=== PATIENT | male | born 1950 | race Caucasian/White ===

== ENCOUNTER 2020-08-24 14:38 | Emergency (ER) | payer BC, MEDICARE ==
[~2020-08-24] VITALS: Ht 188 cm; Wt 131.8 kg
[~2020-08-24 14:38] MED LIST: AMLO5TAB15 PO; ASPI-1009 PO; BENA20TA82 PO; HCTZ25T PO; SIMV-42 PO
[2020-08-24] MEDS ORDERED: fentaNYL/PF 50MCG/1 ML 2ML syringe IV ONE ×2 (14:50→16:10)
[2020-08-24] MEDS ORDERED: HYDR-3965 PO (15:50)
[2020-08-24] MEDS ORDERED: HYDROcodone/acetaminophen 5mg/325mg tablet PO ONE (19:00)
[2020-08-24 19:15] VITALS: BP 133/67
== END 2020-08-24 19:18 | disposition home or self-care (01) ==
LOC: ER 14:38
DX: S42.295A Other nondisplaced fracture of upper end of left humerus, initial encounter for closed fracture (principal); I10 Essential (primary) hypertension; E78.00 Pure hypercholesterolemia, unspecified; R42 Dizziness and giddiness; Z79.899 Other long term (current) drug therapy; W18.39XA Other fall on same level, initial encounter; Y93.89 Activity, other specified; Y92.89 Other specified places as the place of occurrence of the external cause; Y99.8 Other external cause status
CPT/HCPCS: 29105; 73030; 96374; 96376; 99284; J3010

== ENCOUNTER 2020-09-26 12:12 | Inpatient (IN) | payer OTHER ==
[~2020-09-26] VITALS: Ht 188 cm; Wt 126.9 kg
[2020-09-26] VITALS (17 sets, daily range): BP systolic 123–187; BP diastolic 76–103
[~2020-09-26 12:12] MED LIST changes: +famotidine 20mg tablet PO ONE; +ringers solution, lacted 1,000 ML IV SCH; +vancomycin 1,500 MG in NS 300ml IV soln IV ONE
[2020-09-26] MEDS ORDERED: TRIA1CAP6 PO (13:14)
[2020-09-26] MEDS ORDERED: GABA-530 PO (13:14)
[2020-09-26] MEDS ORDERED: DOXY50CA2 PO (13:14)
[2020-09-26] MEDS ORDERED: PRAV20TA4 PO (13:14)
[2020-09-26] MEDS ORDERED: cefazolin/dext.iso 2gm/100ml 100 ML IV ONE (13:30)
[2020-09-26] MEDS ORDERED: tranexamic acid 650mg tablet PO ONE (13:30)
[2020-09-26] MEDS ORDERED: famotidine 20mg tablet PO ONE (13:30)
[2020-09-26] MEDS ORDERED: ceFAZolin 1GM/D5W- ADD-VANTAGE 50 ML IV ONE (13:30)
[2020-09-26 13:42] LABS: ALBUMIN 3.9 G/DL (3.4-5.0); ALBUMIN/GLOBULIN RATIO 1.1 (1.1-1.5); ALKALINE PHOSPHATASE 134 IU/L (46-116); BLOOD UREA NITROGEN 34 MG/DL (7-18); BUN/CREATININE RATIO 27.2 (5.4-32.0); CALCIUM 9.6 MG/DL (8.5-10.1); CHLORIDE 106 MMOL/L (99-107); CREATININE 1.25 MG/DL (0.60-1.10); PRE OP ALT 34 U/L (30-65); PRE OP ANION GAP 11 (8-16); PRE OP AST 20 U/L (10-37); PRE OP BILIRUB, TOTAL 0.6 MG/DL (0.0-1.0); PRE OP GLUCOSE 101 MG/DL (70-104); PRE OP POTASSIUM 3.8 MMOL/L (3.4-5.1); PRE OP SODIUM 143 MMOL/L (135-145); TOTAL CARBON DIOXIDE 26.4 MMOL/L (24-32); TOTAL PROTEIN 7.4 G/DL (6.4-8.2); eGFR 57 ML/MIN
[2020-09-26 13:43] LABS: BASOPHILS # (AUTO) 0.1 X10'3 (0-0.2); BASOPHILS % (AUTO) 0.8 % (0-1); EOSINOPHILS # (AUTO) 0.3 X10'3 (0-0.9); EOSINOPHILS % (AUTO) 4.6 % (0-6); LYMPHOCYTES # (AUTO) 1.5 X10'3 (1.1-4.8); MEAN CORPUSCULAR HEMOGLOBIN 31.2 PG (27.0-31.0); MEAN CORPUSCULAR HGB CONC 33.9 g/dL (33.0-36.5); MEAN CORPUSCULAR VOLUME 92.1 FL (78-98); MEAN PLATELET VOLUME 7.1 FL (7.4-10.4); MONOCYTES # (AUTO) 0.7 X10'3 (0-0.9); MONOCYTES % (AUTO) 10.1 % (2-12); NEUTROPHILS # (AUTO) 4.6 X10'3 (1.8-7.7); NEUTROPHILS % (AUTO) 63.5 % (42-75); PRE OP HEMOGLOBIN 15.2 g/dL (14.0-17.9); PRE OP PLATELET COUNT 241 X10'3 (140-440); RED BLOOD COUNT 4.88 X10'6 (4.70-6.10); RED CELL DISTRIBUTION WIDTH 13.6 % (11.5-14.5)
[2020-09-26] MEDS ORDERED: ketorolac trometh. 30mg/ml inj. ONE (16:10)
[2020-09-26] MEDS ORDERED: ROPIVAcaine 0.5% (5mg/ml) 30ml vial ONE ×2 (16:10→16:41)
[2020-09-26] MEDS ORDERED: sevoflurane 250ml liquid IH ONE (16:33)
[2020-09-26] MEDS ORDERED: MIDAZolam 1 MG/ML 5ML VIAL ONE (16:38)
[2020-09-26] MEDS ORDERED: fentaNYL/PF 50MCG/1 ML 2ML syringe ONE (16:38)
[2020-09-26] MEDS ORDERED: morphine 2 MG/ML inj. syringe IV PRN (18:05)
[2020-09-26] MEDS ORDERED: ROPIVAcaine 0.2% (10 MG/5 ML) BOLUS INJECTION INTERSCALE PRN (18:05)
[2020-09-26] MEDS ORDERED: ringers solution, lacted 1,000 ML IV SCH (18:05)
[2020-09-26] MEDS ORDERED: ondansetron/PF 4mg/2ml inj IV PRN ×2 (18:05→18:40)
[2020-09-26] MEDS ORDERED: ROPIVAcaine 0.2%/PF PUMP/bolus 545 ML INTERSCALE SCH (18:05)
[2020-09-26] MEDS ORDERED: morphine 4 MG/ML inj SYRINge IV PRN (18:05)
[2020-09-26] MEDS ORDERED: meperidine/PF 25mg/ml syringe IV PRN ×2 (18:05)
[2020-09-26] MEDS ORDERED: proCHLORperazine 10 MG/2 ml inj IV PRN (18:05)
[2020-09-26] MEDS ORDERED: HYDROmorphone inj. 0.5 MG/0.5 ML DISP.SYRIN IV PRN (18:40)
[2020-09-26] MEDS ORDERED: HYDROmorphone 1 mg/ml syringe IV PRN (18:40)
[2020-09-26] MEDS ORDERED: bisacodyl 10mg suppository rectal RC PRN (18:40)
[2020-09-26] MEDS ORDERED: magnesium hydroxide 30ml (MOM) UD suspension PO PRN (18:40)
[2020-09-26] MEDS ORDERED: acetaminophen 325mg tablet PO PRN (18:40)
[2020-09-26] MEDS ORDERED: oxyCODONE IR 5mg (immed. release) tablet PO PRN (18:40)
[2020-09-26] MEDS ORDERED: diphenhydrAMINE 25mg capsule PO PRN ×2 (18:40)
[2020-09-26] MEDS ORDERED: propofol inj 20 ML IV ONE (18:42)
[2020-09-26] MEDS ORDERED: ePHEDrine 50MG/ML INJ. ONE (18:43)
--- NOTE | 2020-09-26 18:54 | NUR ---
Received from OR via BED, accompanied by Anesthesiologist DR GONZALEZ and report given by Anesthesiologist. PT DROWSY, PAINFUL, LEFT SHOULDER W/DRSG, SHOULDER WRAP, ICE PACK, SLING CDI. Addendum: 09/26/20 at 1909 by America Santana RN Amended: Links added.
[2020-09-26] MEDS: meperidine/PF 25mg/ml syringe IV PRN ×2 (19:02→19:15)
[2020-09-26] MEDS ORDERED: acetaminophen 1,000mg/100ml IV 100 ML IV ONE (19:20)
[2020-09-26] MEDS ORDERED: LIDOcaine 2% 10ml TOPICAL JELLY (Urojet) MM ONE (19:40)
[2020-09-26] MEDS: acetaminophen 325mg tablet PO SCH (19:52)
--- NOTE | 2020-09-26 19:57 | NUR ---
PT W/O VOID SINCE THIS AM, BLADDER SCANNED FOR 608 ML URINE, CALL INTO DR ODEN AND UPDATED, ORDERS. 16 PASHTO SHETTY CATHETER PLACED BY INES Yates RN W/STERILE TECHNIQUE, CLEAR YELLOW URINE RETURN. PT TOLERATED PROCEDURE WELL. Addendum: 09/26/20 at 1958 by America Santana RN Amended: Links added.
[2020-09-26] MEDS ORDERED: vancomycin/NS 1 GM ADD-VANTAGE 250 ML IV SCH (20:00)
[2020-09-26] MEDS: gabapentin 100mg capsule PO SCH (20:23)
--- NOTE | 2020-09-26 20:24 | NUR ---
Report called to receiving nurse. PAIN IMPROVED AND TOLERABLE. Transferred via BED, NO Belongings,(SENT HOME W/), FIELD COORDINATOR AT BEDSIDE TO RECEIVE PT. Special Issues communicated to receiving nurse. YES. Addendum: 09/26/20 at 2030 by America Santana RN Amended: Links added.
[2020-09-26] MEDS ORDERED: triamterene/HCTZ 37.5/25mg tablet PO ONE (20:45)
[2020-09-26] MEDS ORDERED: lisinopril 20mg tablet PO ONE (20:45)
[2020-09-26] MEDS ORDERED: sennosides 8.6mg tablet PO SCH (21:00)
[2020-09-26] MEDS: oxyCODONE IR 5mg (immed. release) tablet PO PRN (21:03)
[2020-09-26] MEDS: potassium cl 20mEq in 1/2 NS 1,000 ML IV SCH (22:05)
[2020-09-27] VITALS: BP 128/79
[2020-09-27] MEDS: ceFAZolin/D5W- 1GM premix 50 ML IV SCH ×2 (00:29→08:03)
[2020-09-27] MEDS: oxyCODONE IR 5mg (immed. release) tablet PO PRN ×2 (01:11→09:42)
[2020-09-27] MEDS: acetaminophen 325mg tablet PO SCH ×2 (01:11→08:02)
[2020-09-27 02:00] VITALS: BP 128/76
[2020-09-27] MEDS: potassium cl 20mEq in 1/2 NS 1,000 ML IV SCH ×2 (02:40→11:33)
[2020-09-27 06:00] VITALS: BP 134/87
[2020-09-27 06:12] LABS: BASOPHILS % (AUTO) 0.2 % (0-1); EOSINOPHILS % (AUTO) 0 % (0-6); HEMATOCRIT 44.3 % (42.0-52.0); LYMPHOCYTES # (AUTO) 0.6 X10'3 (1.1-4.8); LYMPHOCYTES % (AUTO) 5.3 % (21-51); MEAN CORPUSCULAR HEMOGLOBIN 31.5 PG (27.0-31.0); MEAN CORPUSCULAR HGB CONC 33.8 g/dL (33.0-36.5); MEAN CORPUSCULAR VOLUME 93.2 FL (78-98); MEAN PLATELET VOLUME 7.3 FL (7.4-10.4); MONOCYTES # (AUTO) 0.3 X10'3 (0-0.9); MONOCYTES % (AUTO) 3.2 % (2-12); NEUTROPHILS # (AUTO) 9.5 X10'3 (1.8-7.7); NEUTROPHILS % (AUTO) 91.3 % (42-75); PLATELET COUNT 215 X10'3 (140-440); RED BLOOD COUNT 4.75 X10'6 (4.70-6.10); RED CELL DISTRIBUTION WIDTH 13.7 % (11.5-14.5); WHITE BLOOD COUNT 10.4 X10'3 (4.5-11.0)
[2020-09-27 06:21] LABS: ANION GAP 10 (8-16); CHLORIDE 101 MMOL/L (99-107); POTASSIUM 4.2 MMOL/L (3.5-5.1); SODIUM 136 MMOL/L (135-145); TOTAL CARBON DIOXIDE 25.2 MMOL/L (24-32)
--- NOTE | 2020-09-27 06:51 | NUR ---
Patient in room [facility] 4022A. I have received report from CLARIBEL Estevez and had the opportunity to ask questions and assume patient care.
[2020-09-27] MEDS: gabapentin 100mg capsule PO SCH ×2 (07:59→13:00)
[2020-09-27] MEDS ORDERED: atorvastatin 10mg tablet PO SCH (08:00)
[2020-09-27] MEDS ORDERED: lisinopril 20mg tablet PO SCH (08:00)
[2020-09-27] MEDS ORDERED: amLODIPine 5mg tablet PO SCH (08:00)
[2020-09-27] MEDS ORDERED: DOXYCYCLINE 100MG CAPSULE PO SCH (08:00)
[2020-09-27] MEDS ORDERED: triamterene/HCTZ 37.5/25mg tablet PO SCH (08:00)
[2020-09-27] MEDS ORDERED: aspirin 325mg tablet PO SCH (08:30)
[2020-09-27 10:24] VITALS: BP 133/83
--- NOTE | 2020-09-27 14:40 | NUR ---
DC INSTRUCTIONS GIVEN, QUESTIONS ANSWERED. IV REMOVED BY STUDENT RN, NO COMPLICATIONS. ASSISTED WITH DRESSING AND GATHERED PERSONAL BELONGINGS. WHEELED DOWN TO PRIVATE VEHICLE IN STABLE CONDITION.
[2020-09-27] MEDS ORDERED: lactobacillus rhamnosus 10,000 MMU CELLS/CAPSULE PO SCH (20:00)
--- NOTE | 2020-09-28 14:32 | NUR ---
CASE MANAGEMENT DISCHARGE FOLLOW UP: Spoke with pt via telephone. Reports that he is doing pretty good, had a lot of pain last night but that it is under control now, rates it as 3/10, using ice packs and norco, states that OnQ pain pump bulb is empty at this time, will have his remove it tomorrow; denies CP, SOB, fever/chills, bleeding. Verbalizes understanding of s/sx requiring further evaluation/emergent assistance. Verbalizes understanding of new and current medications. Verbalizes compliance with MD discharge instructions, using IS as directed. Verbalizes understanding of the importance in making/keeping follow-up appointments, has appt with surgeon already scheduled. States no further questions/concerns at this time.
[2020-09-28] MEDS ORDERED: acetaminophen 325mg tablet PO PRN (18:40)
== END 2020-09-27 14:44 | disposition home or self-care (01) | DRG 483 ==
LOC: UNDOADMIN 12:12 → PAS IN 12:12 → ORTHO 4S 20:15 → PAS IN 20:15
PROVIDERS: ADMIT Orthopaedic Surgery; ATTEND Orthopaedic Surgery
PROC: 0LS40ZZ Reposition Left Upper Arm Tendon, Open Approach (ICD-10-PCS; 2020-09-26)
PROC: 3E0T3BZ Introduction of Anesthetic Agent into Peripheral Nerves and Plexi, Percutaneous Approach (ICD-10-PCS; 2020-09-26)
PROC: 0RRK00Z Replacement of Left Shoulder Joint with Reverse Ball and Socket Synthetic Substitute, Open Approach (ICD-10-PCS; principal; 2020-09-26 16:33)
DX: S42.242A 4-part fracture of surgical neck of left humerus, initial encounter for closed fracture (principal); Z20.822 Contact with and (suspected) exposure to COVID-19; I10 Essential (primary) hypertension; E78.00 Pure hypercholesterolemia, unspecified; W18.39XA Other fall on same level, initial encounter; Z79.899 Other long term (current) drug therapy; Y93.89 Activity, other specified; Y92.89 Other specified places as the place of occurrence of the external cause; Y99.8 Other external cause status
CPT/HCPCS: Z7506; Z7508; 36415; 80051; 80053; 85025; 87081; 87426; 97110; 97161; 97530; A4565; A4618; A7000; C1776; G0378; J0131; J0690; J1885; J2175; J2250; J2270; J2704; J2795; J3010; J3370; J3480; J7040; J7120